=== PATIENT | male | born 1995 ===

== ENCOUNTER 2023-04-18 14:30 | Outpatient (CLI) | payer OTHER ==
--- NOTE | 2023-04-22 10:28 | MRI Report ---
PROCEDURE: KNEE WO - RT INDICATIONS: KNEE PAIN TECHNIQUE: Noncontrast sagittal PD fast spin echo and T2 fast spin echo with fat saturation, sagittal 3-D gradie nt sequence with fat saturation; coronal T1 spin echo and PD fast spin echo with fat saturation, and axial PD fast spin echo with fat saturation through the knee. COMPARISON: None. FINDINGS: Image quality: Excellent. Menisci: The medial and lateral menisci demonstrate normal morphology and internal signal. The meni scal root ligaments appear intact. Cruciate ligaments: The anterior and posterior cruciate ligaments appear intact. Medial structures: The medial collateral ligament appears intact. The semimembranosus tendon insert ions and meniscocapsular junction appear intact. Visualized portions of the pes anserinus tendons ap pear normal. No abnormal bursal fluid. Lateral structures: The lateral collateral ligament, long and short heads of the biceps femoris tend on appear intact. The popliteus tendon appears normal. There is signal inhomogeneous in the distal \i liotibial band. Small fluid is present with into the iliotibial band, suspicious for iliotibial band syndrome. Anterior structures: The quadriceps and patellar tendons appear intact. Patellar alignment is hannah l. No femoral trochlear dysplasia or ventral trochlear prominence. No edema in the infrapatellar fa t pad. Bones and cartilage: No bone marrow contusions or fractures. The cartilage of the medial and latera l femorotibial compartments, as well as the patellofemoral compartment, appears normal in thickness. Joint space: There is small knee joint fluid. No Win's cyst. Normal appearing synovial plicae ar e incidentally noted. IMPRESSION: 1. Suspect iliotibial band syndrome. Reviewed by: Daniel Santoyo MD on 04/22/2023 10:27 AM PDT Approved by: Daniel Santoyo MD on 04/22/2023 10:27 AM PDT Station ID: [id number]
== END 2023-04-18 14:31 | disposition home or self-care (01) ==
LOC: DI 14:30
PROVIDERS: ATTEND Physician Assistant
DX: M25.561 Pain in right knee (principal)

== ENCOUNTER 2023-04-28 01:58 | Emergency (ER) | payer OTHER ==
[2023-04-28 02:14] VITALS: BP 148/87
--- NOTE | 2023-04-28 02:34 | ED Physician Documentation ---
PD HPI MALE - Stated complaint Stated Complaint: MALE - Chief complaint Chief Complaint: General - History obtained from History obtained from: Patient, Family () - Additional information Additional information: Patient is a 27-year-old male presenting for evaluation of scrotal rash and swelling that Was noticed by his this evening after he took a shower. Patient has also reported feeling a little nauseous and reports noticing some swelling to the left side of his testicle and some discomfort. He denies any current pain. He denies dysuria, penile discharge or concerns for sexually transmitted infections. He reports adjusting himself earlier today and feeling the irritation to the scrotum. Review of Systems Constitutional: denies: Fever Cardiac: denies: Chest pain / pressure Respiratory: denies: Dyspnea GI: denies: Abdominal Pain : reports: Other. denies: Dysuria Skin: reports: Rash PD PAST MEDICAL HISTORY - Allergies Allergies/Adverse Reactions: Allergies Allergy/AdvReac Type Severity Reaction Status Date / Time No Known Drug Allergies Allergy Verified 04/28/23 02:09 PD ED PE NORMAL - General General: Alert and oriented X 3, No acute distress, Well developed/nourished - HEENT HEENT: Atraumatic - Neck Neck: Supple, no meningeal sign - Cardiac Cardiac: RRR - Respiratory Respiratory: No respiratory distress - Abdomen Abdomen: Soft, Non tender, Non distended - Male Male : [employer] Developer present (RN Zayda), Other (Normal testicular lie with no visible testicular swelling, normal cremaster reflex bilaterally, mild ten derness above left testicle, patchy erythema to scrotum with no vesicles) - Derm Derm: Warm and dry - Neuro Neuro: Normal speech PD ED PE EXPANDED - Male Male visual: 1 - rash 2 - tenderness Results - Vitals Vitals: Vital Signs - 24 hr 04/28/23 04/28/23 02:05 04:09 Temperature 36 C L Heart Rate 117 H Respiratory 16 Rate Blood Pressure 148/87 H O2 Saturation 98 16 L Oxygen O2 Source Room air - Labs Labs: Laboratory Tests 04/28/23 02:45 Urine Color YELLOW Urine Clarity CLEAR Urine pH 7.0 Ur Specific [place] 1.020 Urine Protein 30 H Urine Glucose (UA) NEGATIVE Urine Ketones TRACE Urine Occult Blood NEGATIVE Urine Nitrite NEGATIVE Urine Bilirubin NEGATIVE Urine Urobilinogen 2 H Ur Leukocyte Esterase NEGATIVE Urine RBC 0-5 Urine WBC 0-3 Ur Squamous Epith Cells NONE SEEN Urine Bacteria Rare Urine Casts 6-10 Hyaline Casts Urine Mucus Moderate Strands Ur Microscopic Review INDICATED Urine Culture Comments NOT INDICATED PD Medical Decision Making - ED course Complexity details: reviewed results, re-evaluated patient ED course: Patient is a 27-year-old male presenting for evaluation of rash to his scrotum as well as swelling. Also reported an area of mild discomfort Not directly on the testicle. On exam he has no significant testicular tenderness. Normal testicular lie and cremasteric reflexes intact bilaterally. Clinically he is well-appearing and denies any reports of pain to the testicles and has no tenderness on exam to suggest torsion. However patient has some swelling. We do not have ultrasound available at this time of night. Given his age and description of symptoms I felt it was prudent to obtain an ultrasound and called around to local [facility] hospitals. He was excepted by [facility]. Patient declined ambulance transfer. We stressed to the patient the importance of going directly to their emergency department for an ultrasound. His urine analysis was reviewed here and without any significant findings. 0230 [place] [facility] [place] [facility]. 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 MD is in a procedure and will call back once he is done. 0330 - D/W Dr. Chanel at [facility] - They would be able to help out with an ult rasound but they actually do not have a urologist on tonight (They are only able to speak to urologist at [facility] for guidance) that would be available for any procedure if needed and he would recommend calling [facility] as they have both ultrasound and urology. 0335 - D/W Dr. Hadley at [facility]. Accepts pt in transfer for testicular ultrasound. Patient and are updated regarding this plan and are willing to go to [facility] for testicular ultrasound. They prefer to drive himself rather than wait for an ambulance. They understand the importance of going directly to the hospital and not stopping Anywhere else. Departure - Departure Disposition: 02 Transfer Acute Care Hosp Clinical Impression: Rash on scrotum, Scrotum swelling Condition: Good Comments: PLEASE GO DIRECTLY TO [facility] in order to get an ultrasound of your testicles. I spoke to Dr. Hadley and he is aware that you will be coming there. Located in: [facility] Address: [address] [place] [id number] Forms: PCP List Discharge Date/Time: 04/28/23 04:15
[2023-04-28 02:51] LABS: BILIRUBIN,URINE NEGATIVE (NEGATIVE); CLARITY,URINE CLEAR (CLEAR); GLUCOSE, URINE (UA) NEGATIVE (NEGATIVE); KETONES,URINE (UA) TRACE mg/dL (NEGATIVE); LEUKOCYTE ESTERASE, URINE NEGATIVE (NEGATIVE); NITRITE,URINE NEGATIVE (NEGATIVE); OCCULT BLOOD,URINE NEGATIVE (NEGATIVE); PROTEIN,URINE 30 mg/dL (NEGATIVE); UROBILINOGEN,URINE 2 E.U./dL (NORMAL)
[2023-04-28 03:00] LABS: BACTERIA,URINE Rare /HPF (None Seen); CASTS, URINE 6-10 Hyaline Casts /LPF; MUCUS,URINE Moderate Strands; RBC,URINE 0-5 /HPF (0-5); SQUAMOUS EPITHELIAL CELL,UR NONE SEEN (<= Few); WBC,URINE 0-3 /HPF (0-3)
[2023-04-28 04:38] VITALS: O2SAT 16
[2023-04-28 05:05] LABS: CHLAMYDIA TRACHOMATIS DNA NEGATIVE (NEGATIVE); NEISSERIA GONORRHOEAE DNA NEGATIVE (NEGATIVE); TRICHOMONAS VAGINALIS DNA NEGATIVE (NEGATIVE)
== END 2023-04-28 04:15 | disposition short-term general hospital (02) ==
LOC: ED 01:58
DX: R21 Rash and other nonspecific skin eruption (principal); N50.89 Other specified disorders of the male genital organs
CPT/HCPCS: 81001; 81003; 87086; 87491; 87591; 87661; 99284; 99285